=== PATIENT | female | born 1945 | race Caucasian/White ===

== ENCOUNTER 2016-09-07 16:03 | Day surgery (SDCO) | payer MEDICARE ==
[2016-09-07 16:48] LABS: BASOPHIL 1.4 % (0-2); EOSINOPHIL 1.6 % (0-7); HCT 43.2 % (37.0-47.0); HGB 14.3 g/dl (12.5-16.0); LYMPHOCYTE 30.7 % (15-48); MCH 31.1 pg (25.0-31.0); MCHC 33.1 g/dL (32.0-36.0); MCV 93.9 fL (78.0-100.0); MONOCYTE 9.6 % (0-12); MPV 9.9 fL (6.0-9.5); NEUTROPHIL 56.7 % (41-80); PLT 354 K/uL (150-400); RDW 13.6 % (11.5-14.0); WBC 5.5 K/uL (4.0-10.5)
[2016-09-07 17:38] LABS: BILIRUBIN - TOTAL 0.3 mg/dL (0.1-1.0); CREATININE 0.8 mg/dL (0.5-1.0); GLOBULIN (CALCULATION) 2.9 g/dL (2.2-4.2); POTASSIUM 4.4 mmol/L (3.5-5.1); TOTAL PROTEIN 6.9 g/dL (6.4-8.3)
[2016-09-07 17:48] LABS: CKMB 1.96 ng/mL (0.97-4.94); TROPONIN T < 0.010 ng/mL
[2016-09-08 05:15] LABS: HCT 41.6 % (37.0-47.0); HGB 13.5 g/dl (12.5-16.0); MCH 30.8 pg (25.0-31.0); MCHC 32.5 g/dL (32.0-36.0); MCV 94.8 fL (78.0-100.0); MPV 9.7 fL (6.0-9.5); RBC 4.39 M/uL (4.20-5.40); RDW 13.5 % (11.5-14.0); WBC 5.2 K/uL (4.0-10.5)
[2016-09-08 05:33] LABS: CREATININE 0.9 mg/dL (0.5-1.0); POTASSIUM 3.7 mmol/L (3.5-5.1)
[2016-09-08 05:44] LABS: FT4 (FREE T4) 1.21 ng/dL (0.93-1.70); TSH (THYROID STIM HORMONE) 0.744 uIU/mL (0.270-4.200)
[2016-09-09] MEDS ORDERED: LIPITOR20 MG PO (11:43)
[2016-09-09] MEDS ORDERED: CALCIUM600 MG PO (11:43)
[2016-09-09] MEDS ORDERED: CERTAGEN1 EACH PO (11:43)
[2016-09-09] MEDS ORDERED: XARELTO20 MG PO (11:44)
[2016-09-09] MEDS ORDERED: LOPRESSOR25 MG PO (11:44)
[2016-09-09] MEDS ORDERED: DIGITEK125 MCG PO (11:44)
== END 2016-09-09 12:46 | disposition home or self-care (01) ==
LOC: FER 16:03 → FTCU 17:15
PROVIDERS: Emergency Medicine; ADMIT Internal Medicine Adolescent Medicine
DX: I48.0 Paroxysmal atrial fibrillation (principal); I10 Essential (primary) hypertension; E78.5 Hyperlipidemia, unspecified; Z90.49 Acquired absence of other specified parts of digestive tract; Z85.3 Personal history of malignant neoplasm of breast; Z82.49 Family history of ischemic heart disease and other diseases of the circulatory system; Z83.3 Family history of diabetes mellitus; Z79.82 Long term (current) use of aspirin; Z79.899 Other long term (current) drug therapy
CPT/HCPCS: 36415; 71010; 80048; 80053; 80162; 82550; 82553; 84439; 84443; 84484; 85025; 93005; G0378; J1160

== ENCOUNTER 2016-09-12 10:38 | Emergency (ER) | payer MEDICARE ==
[~2016-09-12 10:38] MED LIST: CALCIUM600 MG PO; CERTAGEN1 EACH PO; DIGITEK125 MCG PO; LIPITOR20 MG PO; LOPRESSOR25 MG PO; XARELTO20 MG PO
[2016-09-12 13:03] LABS: BASOPHIL 0.5 % (0-2); EOSINOPHIL 0.2 % (0-7); HCT 45.2 % (37.0-47.0); HGB 15.1 g/dl (12.5-16.0); LYMPHOCYTE 12.7 % (15-48); MCH 31.5 pg (25.0-31.0); MCHC 33.4 g/dL (32.0-36.0); MCV 94.2 fL (78.0-100.0); MONOCYTE 4.4 % (0-12); MPV 9.6 fL (6.0-9.5); NEUTROPHIL 82.2 % (41-80); PLT 344 K/uL (150-400); RDW 13.1 % (11.5-14.0); WBC 8.3 K/uL (4.0-10.5)
[2016-09-12 13:43] LABS: CREATININE 0.7 mg/dL (0.5-1.0); POTASSIUM 4.1 mmol/L (3.5-5.1)
[2016-09-12 13:55] LABS: INR 1.84 (0.9-1.2); PROTHROMBIN TIME 20.7 SECONDS (11.7-14.0); PTT 30.6 SECONDS (23.2-31.4)
== END 2016-09-12 16:14 | disposition home or self-care (01) ==
LOC: FER 10:38
PROVIDERS: Emergency Medicine
DX: H81.10 Benign paroxysmal vertigo, unspecified ear (principal); I10 Essential (primary) hypertension; I48.91 Unspecified atrial fibrillation; Z79.899 Other long term (current) drug therapy; Z79.82 Long term (current) use of aspirin; Z79.01 Long term (current) use of anticoagulants; Z98.890 Other specified postprocedural states
CPT/HCPCS: 36415; 70450; 70551; 71010; 80048; 80162; 84484; 85025; 85610; 85730; 93005; J2405

== ENCOUNTER 2021-10-27 01:57 | Emergency (ER) | payer MEDICARE ==
[~2021-10-27 01:57] MED LIST changes: +AMIODARONE HCL200 MG PO; +CALCIUM500 MG PO; +METFORMIN HCL500 MG PO; +TAMOXIFEN CITRA20 MG PO; +XARELTO10 MG PO
[2021-10-27 03:09] LABS: BASOPHIL 0.9 % (0-2); EOSINOPHIL 1.5 % (0-7); HCT 38.4 % (37.0-47.0); HGB 12.3 g/dl (12.5-16.0); MCH 31.5 pg (25.0-31.0); MCV 98.2 fL (78.0-100.0); MONOCYTE 11.3 % (0-12); MPV 9.3 fL (6.0-9.5); NEUTROPHIL 49.1 % (41-80); NRBC 0; PLT 277 K/uL (150-400); RBC 3.91 M/uL (4.20-5.40); RDW 13.4 % (11.5-14.0); WBC 6.7 K/uL (4.0-10.5)
[2021-10-27 03:25] LABS: ALBUMIN 3.3 g/dL (3.4-5.0); BILIRUBIN - TOTAL 0.3 mg/dL (0.2-1.0); BUN/CREAT RATIO (CALC) 21.1 RATIO; CREATININE 0.95 mg/dL (0.51-0.95); GLOBULIN (CALCULATION) 2.9 g/dL; POTASSIUM 3.9 mmol/L (3.5-5.1); TOTAL PROTEIN 6.2 g/dL (6.4-8.2)
== END 2021-10-27 06:01 | disposition home or self-care (01) ==
LOC: FER 01:57
PROVIDERS: Emergency Medicine
DX: I48.0 Paroxysmal atrial fibrillation (principal); E11.9 Type 2 diabetes mellitus without complications; Z79.84 Long term (current) use of oral hypoglycemic drugs; Z79.899 Other long term (current) drug therapy
CPT/HCPCS: 36415; 71045; 80053; 83880; 84443; 84484; 85025; 85379; 93005; J7030